=== PATIENT | male | born 1970 | race African-American/Black ===

== ENCOUNTER 2017-08-12 20:41 | Emergency (ER) | payer MEDICAID, OTHER ==
[~2017-08-12] VITALS: Ht 170.2 cm; Wt 86.0 kg
[~2017-08-12 20:41] MED LIST: BENZ2TAB7 PO; LITHTAB PO; ZIPR40CA2 PO
[2017-08-12] MEDS ORDERED: SODIUM CHLORIDE 0.9% 1,000 ML IV ONE (22:35)
[2017-08-12 23:10] LABS: BG BASE EXCESS 2.7 mmol/L (-2.0-2.0); BG CARBOXYHEMOGLOBIN 0.8 % (0.5-1.5); BG DEOXYHEMOGLOBIN 3.6 % (0.0-5.0); BG FRACTION INSPIRED OXYGEN 21; BG HCO3 ACT 26.6 mmol/L (22.0-26.0); BG METHEMOGLOBIN 0.3 % (0.0-1.5); BG OXYGEN SATURATION 96.4 % (92.0-98.5); BG OXYHEMOGLOBIN 95.3 % (94.0-97.0); BG PCO2 38.8 mmHg (35.0-45.0); BG PH 7.454 (7.350-7.450); BG PO2 78.4 mmHg (75.0-100.0); BG SAMPLE SITE RIGHT BRACHIAL; BG TOTAL HEMOGLOBIN 14.1 g/dL (12.0-18.0); BG VENT MODE ROOM AIR
[2017-08-12 23:10] LABS: HEMATOCRIT. 39.7 % (42.0-52.0); HEMOGLOBIN. 13.3 g/dL (14.0-18.0); MEAN CORPUSCULAR HEMOGLOBIN 28.3 pg (28.0-32.0); MEAN CORPUSCULAR VOLUME 84.7 fL (80.0-94.0); MEAN PLATELET VOLUME 8.6 fl (7.4-10.4); PLATELET 196 x1000/uL (130-400); RED BLOOD CELL COUNT 4.69 mill/uL (4.7-6.1); RED CELL DISTRIBUTION WIDTH 13.3 % (11.6-14.6)
[2017-08-12 23:22] LABS: PLATELET ESTIMATE NORMAL
[2017-08-12 23:23] LABS: CARBON DIOXIDE 29 mEq/L (21-32); CHLORIDE 96 mEq/L (98-107)
[2017-08-12 23:24] LABS: AMYLASE 21 IU/L (25-115); BETA HYDROXYBUTYRATE 0.7 mMol/L (0.0-0.3); TROPONIN I < 0.02 ng/mL (0.00-0.04)
[2017-08-13] MEDS ORDERED: INSULIN REGULAR (HUMULIN R) 300UNITS/3ML SUBCUT ONE (01:00)
[2017-08-13 03:18] VITALS: BP 124/76
== END 2017-08-13 03:22 | disposition home or self-care (01) ==
LOC: ER 21:39
DX: M54.5 Low back pain (principal); G89.29 Other chronic pain; E11.65 Type 2 diabetes mellitus with hyperglycemia; F31.9 Bipolar disorder, unspecified
CPT/HCPCS: 36415; 36600; 80053; 82010; 82150; 82375; 82805; 82962; 83690; 84484; 85025; 96360; 96372; 99284; J1815; Z7610; J7030

== ENCOUNTER 2017-08-14 12:25 | Emergency (ER) | payer OTHER ==
[~2017-08-14] VITALS: Ht 170.2 cm; Wt 86.0 kg
[2017-08-14] MEDS ORDERED: SODIUM CHLORIDE 0.9% 1,000 ML IV ONE ×2 (13:21→15:45)
[2017-08-14] MEDS ORDERED: ONDANSETRON HCL 4MG/2ML VIAL IV STA (13:21)
[2017-08-14 14:15] LABS: HEMOGLOBIN. 14.3 g/dL (14.0-18.0); MEAN CORPUSCULAR HEMOGLOBIN 28.8 pg (28.0-32.0); MEAN CORPUSCULAR VOLUME 84.5 fL (80.0-94.0); MEAN PLATELET VOLUME 8.9 fl (7.4-10.4); PLATELET 229 x1000/uL (130-400); RED BLOOD CELL COUNT 4.97 mill/uL (4.7-6.1); RED CELL DISTRIBUTION WIDTH 13.2 % (11.6-14.6)
[2017-08-14 14:21] LABS: INR 1.1; PROTHROMBIN TIME 11.6 sec (9.4-11.6)
[2017-08-14 14:30] LABS: CARBON DIOXIDE 31 mEq/L (21-32); CHLORIDE 96 mEq/L (98-107)
[2017-08-14] MEDS ORDERED: KETOROLAC 15MG/ML VIAL IV ONE (15:30)
[2017-08-14 15:57] LABS: CLARITY URINE CLOUDY (CLEAR); COLOR URINE YELLOW (YELLOW); GLUCOSE URINE 3+ (NEGATIVE); KETONES URINE TRACE (NEGATIVE); LEUKOCYTE ESTERASE URINE 2+ (NEGATIVE); NITRITE URINE POSITIVE (NEGATIVE); OCCULT BLOOD URINE 2+ (NEGATIVE); PROTEIN URINE NEGATIVE (NEGATIVE); SPECIFIC GRAVITY URINE 1.022 (1.005-1.030)
[2017-08-14 15:57] LABS: ATYPICAL LYMPHOCYTES 2
[2017-08-14 15:58] LABS: PLATELET ESTIMATE NORMAL
[2017-08-14] MEDS ORDERED: CEFTRIAXONE 1 G PREMIX 50 ML IV ONE (17:45)
[2017-08-14 18:06] VITALS: BP 108/61
== END 2017-08-14 18:29 | disposition home or self-care (01) ==
LOC: ER 13:05
DX: E11.65 Type 2 diabetes mellitus with hyperglycemia (principal); N39.0 Urinary tract infection, site not specified; F31.9 Bipolar disorder, unspecified
CPT/HCPCS: 36415; 71010; 80053; 81001; 82962; 83690; 85025; 85610; 93005; 96361; 96365; 96375; 99285; J0696; J1885; J2405; J7030; Z7610

== ENCOUNTER 2025-07-11 15:32 | Emergency (ER) | payer MEDICAID ==
[~2025-07-11] VITALS: Ht 170.2 cm; Wt 88.0 kg
[~2025-07-11 15:32] MED LIST changes: +ASPI-1497 PO; +BENZ2TAB65 PO; -BENZ2TAB7 PO; +LEVE500T19 PO; +LEVO250T2 PO; +LISI-186 PO; +METF-907 PO; +METO25TA6 PO; +SIMV-43 PO; -ZIPR40CA2 PO; +ZIPR40CA43 PO
[2025-07-11 15:59] VITALS: O2SAT 100
[2025-07-11] MEDS: IBUPROFEN 600MG TABLET PO ONE (17:24)
[2025-07-11] MEDS: LIDOCAINE 5% PATCH TOP STA (17:24)
[2025-07-11 18:58] VITALS: TEMP 36.6
[2025-07-11 19:02] LABS: BASOPHILS % 0.4 % (0.0-2.0); EOSINOPHILS % 3.3 % (0.0-5.0); HEMATOCRIT. 42.3 % (42.0-52.0); HEMOGLOBIN. 13.8 g/dL (14.0-18.0); LYMPHOCYTES % 26.0 % (20.0-50.0); MEAN PLATELET VOLUME 9.4 fl (7.4-10.4); MONOCYTES % 6.9 % (2.0-8.0); NEUTROPHILS % 63.4 % (40.0-76.0); PLATELET 194 x1000/uL (130-400); RED BLOOD CELL COUNT 4.72 mill/uL (4.7-6.1); RED CELL DISTRIBUTION WIDTH 13.2 % (11.6-14.6)
[2025-07-11 19:21] LABS: CREATININE 1.4 mg/dL (0.6-1.3); UREA NITROGEN BLOOD 11 mg/dL (9-23)
[2025-07-11 19:22] LABS: TROPONIN I HIGH SENSITIVITY < 4 ng/L (3.0-53)
[2025-07-11 19:23] LABS: ASPARTATE AMINOTRANSFERASE 17 IU/L (<34); BILIRUBIN DIRECT 0.2 mg/dL (<=3.0); BILIRUBIN TOTAL 0.4 mg/dL (0.1-1.0); PROTEIN TOTAL 7.3 g/dL (6.0-8.3)
[2025-07-11] MEDS ORDERED: IBUP-1455 MT (20:30)
[2025-07-11] MEDS ORDERED: LIDO700A30 TP (20:30)
[2025-07-11 20:52] VITALS: BP 102/63; PULSE 67; RESP 14; O2SAT 100
== END 2025-07-11 20:55 | disposition home or self-care (01) ==
LOC: ER 15:32
DX: S80.212A Abrasion, left knee, initial encounter (principal); R55 Syncope and collapse; M25.512 Pain in left shoulder; M54.50 Low back pain, unspecified; E11.9 Type 2 diabetes mellitus without complications; F31.9 Bipolar disorder, unspecified; Z79.82 Long term (current) use of aspirin; Z79.84 Long term (current) use of oral hypoglycemic drugs; Z79.899 Other long term (current) drug therapy; W22.03XA Walked into furniture, initial encounter; Y92.000 Kitchen of unspecified non-institutional (private) residence as the place of occurrence of the external cause; Y93.89 Activity, other specified; Y99.8 Other external cause status
CPT/HCPCS: 36415; 71045; 80048; 80076; 84484; 85025; 93005; 99285